=== PATIENT | female | born 1930 | race Caucasian/White ===

== ENCOUNTER → 2017-04-19 | Outpatient (REF) | payer MEDICARE, OTHER ==
[~2017-04-19] MED LIST: /ALEN70TA OR; /GLYB5TA OR; /PANT40TA OR; ACET65TA OR; AMLO10TA OR; ASPI325T OR; BRIMONIDINE TIMOLOL OU; CIPR25SS OR; COSOPT OU; DIOV160T5 PO; HYDR25TA6 OR; LEVA250T OR; LISI40TA PO; LOPR100T OR; LUMIGAN OU; MULTIVIT OR; NOVO70VL SC; PRAV20TA2 OR; TOPR100T OR
== END ==
LOC: M LAB REF 08:07
PROVIDERS: ATTEND Nurse Practitioner Adult Health
DX: R19.7 Diarrhea, unspecified (principal)

== ENCOUNTER 2018-01-25 07:56 | Inpatient (IN) | payer MEDICARE, OTHER ==
[2018-01-25] MEDS: BRIMONIDINE 0.2% EYE DROPS (PATIENT'S OWN MED) OU ×2 (09:00→21:00)
[2018-01-25 09:37] LABS: BASO % 0.4 % (0.0-1.0); EOS # 0.1 10^3/uL (0.0-0.50); EOS % 1.3 % (0.0-3.0); HEMATOCRIT 29.4 % (36.0-47.0); HEMOGLOBIN 9.1 g/dl (12.0-15.5); IMMATURE GRANULOCYTE % 0.3 % (0-3.0); LYMPH % 14.2 % (24.0-44.0); MEAN CORPUSCULAR HEMOGLOBIN 28.3 pg (27.0-33.0); MEAN CORPUSCULAR VOLUME 91.6 fl (80.0-96.0); MONO # 0.3 10^3/uL (0.0-0.8); MONO % 4.5 % (0.0-5.0); NEUTROPHILS # 5.6 10^3/uL (1.8-7.7); NEUTROPHILS % 79.3 % (36.0-66.0); PLATELET COUNT, AUTOMATED 196 10^3/uL (150-450); RED BLOOD COUNT 3.21 10^6/uL (4.00-5.40); RED CELL DISTRIBUTION WIDTH 13.9 % (11.5-14.5); WHITE BLOOD COUNT 7.1 10^3/uL (4.0-10.0)
[2018-01-25 09:41] LABS: INR 0.95; PROTHROMBIN TIME 12.8 SECONDS (12.4-14.5)
[2018-01-25 09:42] LABS: PARTIAL THROMBOPLASTIN TIME 25.9 SECONDS (26.8-37.9)
[2018-01-25 09:52] LABS: ALBUMIN 3.2 GM/DL (3.2-5.2); ALBUMIN/GLOBULIN RATIO 0.73 (1.00-1.93); ALKALINE PHOSPHATASE 267 U/L (45-117); ALT/SGPT 49 U/L (12-78); ANION GAP 6 MEQ/L (8-16); AST/SGOT 32 U/L (7-37); BILIRUBIN,DIRECT 0.2 MG/DL (0.0-0.2); BILIRUBIN,TOTAL 0.5 MG/DL (0.2-1.0); BLOOD UREA NITROGEN 30 MG/DL (7-18); CALCIUM LEVEL 8.8 MG/DL (8.8-10.2); CARBON DIOXIDE LEVEL 26 MEQ/L (21-32); CHLORIDE LEVEL 109 MEQ/L (98-107); CK-MB VALUE MASS 1.7 NG/ML (<3.6); CPK CREATINE PHOSPHOKINASE 31 U/L (26-192); GLOMERULAR FILTRATION RATE > 60.0 (>32); GLUCOSE, FASTING 165 MG/DL (70-100); LIPASE 28 U/L (73-393); MB/CK RELATIVE INDEX 5.48 (< OR =4); POTASSIUM SERUM 3.8 MEQ/L (3.5-5.1); SODIUM LEVEL 141 MEQ/L (136-145); TOTAL PROTEIN 7.6 GM/DL (6.4-8.2); TROPONIN I < 0.02 NG/ML (< 0.10)
[2018-01-25] MEDS: PANTOPRAZOLE SODIUM 40 MG in D5W 50 ML IV ×3 (10:15→22:12)
[2018-01-25] MEDS: PANTOPRAZOLE 40MG INJ (PROTONIX) (C9113) IV (10:25)
[2018-01-25] MEDS: NS 1,000 ML IV (10:25)
[2018-01-25] MEDS ORDERED: DEXTROSE 50% 50 ML SYRINGE IV (11:15)
[2018-01-25] MEDS ORDERED: GLUCOSE 4 GM CHEW TABLET PO (11:15)
[2018-01-25] MEDS ORDERED: GLUCAGON FOR INJ 1 MG VIAL (J1610) SC (11:15)
[2018-01-25] MEDS: D5W/0.45% SODIUM CHLORIDE 1,000 ML IV (11:30)
[2018-01-25 13:00] LABS: FERRITIN 17 NG/ML (8-252); IRON (FE) 28 UG/DL (50-170); PERCENT SATURATION 8.8 % (13.2-45.0); TOTAL IRON BINDING CAPACITY 317 UG/DL (250-450)
[2018-01-25] MEDS: COSOPT OCUMETER PLUS 10ML (DORZOLAMIDE/TIMOLOL) OU ×3 (13:11→22:12)
[2018-01-25] MEDS: LISINOPRIL 10 MG TAB PO (13:11)
[2018-01-25] MEDS: LISINOPRIL 20 MG TAB PO (13:17)
[2018-01-25] MEDS: METOPROLOL SUCC *XL* 25MG TAB (TopROL *XL*) PO (13:17)
[2018-01-25] MEDS: HumaLOG INSULIN (NovoLOG) PER UNIT SC ×3 (13:17→23:53)
[2018-01-25 13:28] LABS: BEDSIDE GLUCOSE 184 MG/DL (83-110)
[2018-01-25 13:45] LABS: IMMEDIATE SPIN CROSSMATCH 1 1
[2018-01-25 17:56] LABS: BEDSIDE GLUCOSE 65 MG/DL (83-110)
[2018-01-25 18:53] LABS: BEDSIDE GLUCOSE 173 MG/DL (83-110)
[2018-01-25 19:47] LABS: HEMATOCRIT 34.4 % (36.0-47.0); HEMOGLOBIN 10.9 g/dl (12.0-15.5)
[2018-01-25 20:14] LABS: CK-MB VALUE MASS 1.5 NG/ML (<3.6); CPK CREATINE PHOSPHOKINASE 33 U/L (26-192); MB/CK RELATIVE INDEX 4.54 (< OR =4); TROPONIN I < 0.02 NG/ML (< 0.10)
[2018-01-25] MEDS: LUMIGAN 0.01% EYE DROPS (PATIENT'S OWN MED) OU (21:00)
[2018-01-25] MEDS: GOLYTELY SOLN 4000 ML BTL PO (22:10)
[2018-01-25] MEDS: BISACODYL 5 MG TAB PO (22:11)
[2018-01-25 23:50] LABS: BEDSIDE GLUCOSE 286 MG/DL (83-110)
[2018-01-26 00:39] LABS: HEMATOCRIT 37.8 % (36.0-47.0)
[2018-01-26 00:57] LABS: CK-MB VALUE MASS 2.2 NG/ML (<3.6); CPK CREATINE PHOSPHOKINASE 41 U/L (26-192); MB/CK RELATIVE INDEX 5.36 (< OR =4); TROPONIN I < 0.02 NG/ML (< 0.10)
[2018-01-26] MEDS: PANTOPRAZOLE SODIUM 40 MG in D5W 50 ML IV ×5 (02:26→20:59)
[2018-01-26] MEDS: D5W/0.45% SODIUM CHLORIDE 1,000 ML IV (05:33)
[2018-01-26] MEDS: HumaLOG INSULIN (NovoLOG) PER UNIT SC ×4 (05:36→20:49)
[2018-01-26] MEDS: LISINOPRIL 40 MG TAB PO (05:46)
[2018-01-26 05:57] LABS: BEDSIDE GLUCOSE 66 MG/DL (83-110)
[2018-01-26 06:43] LABS: BASO % 0.5 % (0.0-1.0); EOS # 0.1 10^3/uL (0.0-0.50); EOS % 1.3 % (0.0-3.0); HEMATOCRIT 34.3 % (36.0-47.0); HEMOGLOBIN 11.1 g/dl (12.0-15.5); IMMATURE GRANULOCYTE % 0.3 % (0-3.0); LYMPH # 0.9 10^3/uL (1.5-4.5); LYMPH % 10.4 % (24.0-44.0); MEAN CORPUSCULAR HEMOGLOBIN 28.5 pg (27.0-33.0); MEAN CORPUSCULAR HGB CONC 32.4 g/dl (32.0-36.5); MEAN CORPUSCULAR VOLUME 88.2 fl (80.0-96.0); MONO # 0.9 10^3/uL (0.0-0.8); MONO % 10.4 % (0.0-5.0); NEUTROPHILS # 6.7 10^3/uL (1.8-7.7); NEUTROPHILS % 77.1 % (36.0-66.0); PLATELET COUNT, AUTOMATED 206 10^3/uL (150-450); RED BLOOD COUNT 3.89 10^6/uL (4.00-5.40); RED CELL DISTRIBUTION WIDTH 13.9 % (11.5-14.5); WHITE BLOOD COUNT 8.7 10^3/uL (4.0-10.0)
[2018-01-26 07:08] LABS: ANION GAP 6 MEQ/L (8-16); BLOOD UREA NITROGEN 16 MG/DL (7-18); CALCIUM LEVEL 8.7 MG/DL (8.8-10.2); CARBON DIOXIDE LEVEL 27 MEQ/L (21-32); CHLORIDE LEVEL 110 MEQ/L (98-107); CHOLESTEROL LEVEL 102 MG/DL (<200); CHOLESTEROL RISK RATIO 2.372 (<5); CPK CREATINE PHOSPHOKINASE 41 U/L (26-192); CREATININE FOR GFR 0.83 MG/DL (0.55-1.30); GLOMERULAR FILTRATION RATE > 60.0 (>32); GLUCOSE, FASTING 98 MG/DL (70-100); HDL CHOLESTEROL 43 MG/DL (>40); NON-HDL-C 59 MG/DL; POTASSIUM SERUM 3.2 MEQ/L (3.5-5.1); SODIUM LEVEL 143 MEQ/L (136-145); TRIGLYCERIDES LEVEL 55 MG/DL (<150); TROPONIN I < 0.02 NG/ML (< 0.10)
[2018-01-26 07:09] LABS: CK-MB VALUE MASS 1.8 NG/ML (<3.6); MB/CK RELATIVE INDEX 4.39 (< OR =4)
[2018-01-26] MEDS: COSOPT OCUMETER PLUS 10ML (DORZOLAMIDE/TIMOLOL) OU ×2 (08:13→21:00)
[2018-01-26] MEDS: METOPROLOL SUCC *XL* 25MG TAB (TopROL *XL*) PO (08:13)
[2018-01-26] MEDS ORDERED: PANTOPRAZOLE 40MG INJ (PROTONIX) (C9113) IV (09:00)
[2018-01-26] MEDS: BRIMONIDINE 0.2% EYE DROPS (PATIENT'S OWN MED) OU ×2 (09:00→21:00)
[2018-01-26 09:38] LABS: ESTIMATED AVERAGE GLUCOSE 174 MG/DL (60-110); HEMOGLOBIN A1c 7.7 %
[2018-01-26 11:35] LABS: BEDSIDE GLUCOSE 244 MG/DL (83-110)
[2018-01-26 12:20] LABS: HEMATOCRIT 31.9 % (36.0-47.0); HEMOGLOBIN 10.5 g/dl (12.0-15.5)
[2018-01-26] MEDS ORDERED: fentaNYL 100 MCG/2 ML INJECTION (J3010) As Ordered (14:43)
[2018-01-26] MEDS ORDERED: LIDOCAINE 2% INJ 100 MG/5 ML SDV (FOR ANES.) As Ordered (15:07)
[2018-01-26] MEDS ORDERED: ePHEDrine SULFATE 25 MG/5 ML(5MG/ML) SYRINGE As Ordered (15:07)
[2018-01-26] MEDS ORDERED: PROPOFOL 200 MG/20 ML VIAL As Ordered (15:07)
[2018-01-26 18:02] LABS: HEMATOCRIT 34.8 % (36.0-47.0); HEMOGLOBIN 11.3 g/dl (12.0-15.5)
[2018-01-26 18:08] LABS: BEDSIDE GLUCOSE 67 MG/DL (83-110)
[2018-01-26 18:46] LABS: BEDSIDE GLUCOSE 143 MG/DL (83-110)
[2018-01-26 20:59] LABS: BEDSIDE GLUCOSE 232 MG/DL (83-110)
[2018-01-26] MEDS: LUMIGAN 0.01% EYE DROPS (PATIENT'S OWN MED) OU (21:00)
[2018-01-27 00:07] LABS: H PYLORI SERUM QUANT IGM <9.0 units (0.0-8.9)
[2018-01-27 02:15] LABS: HEMATOCRIT 30.8 % (36.0-47.0); HEMOGLOBIN 10.2 g/dl (12.0-15.5)
[2018-01-27] MEDS: PANTOPRAZOLE SODIUM 40 MG in D5W 50 ML IV (02:15)
[2018-01-27 05:46] LABS: BASO % 0.2 % (0.0-1.0); EOS % 0.1 % (0.0-3.0); HEMATOCRIT 30.2 % (36.0-47.0); HEMOGLOBIN 9.8 g/dl (12.0-15.5); IMMATURE GRANULOCYTE % 0.5 % (0-3.0); LYMPH % 6.2 % (24.0-44.0); MEAN CORPUSCULAR HEMOGLOBIN 28.9 pg (27.0-33.0); MEAN CORPUSCULAR HGB CONC 32.5 g/dl (32.0-36.5); MEAN CORPUSCULAR VOLUME 89.1 fl (80.0-96.0); MONO # 0.7 10^3/uL (0.0-0.8); MONO % 4.2 % (0.0-5.0); NEUTROPHILS # 13.7 10^3/uL (1.8-7.7); NEUTROPHILS % 88.8 % (36.0-66.0); PLATELET COUNT, AUTOMATED 166 10^3/uL (150-450); RED BLOOD COUNT 3.39 10^6/uL (4.00-5.40); RED CELL DISTRIBUTION WIDTH 14.2 % (11.5-14.5); WHITE BLOOD COUNT 15.4 10^3/uL (4.0-10.0)
[2018-01-27 06:02] LABS: ANION GAP 7 MEQ/L (8-16); BLOOD UREA NITROGEN 10 MG/DL (7-18); CALCIUM LEVEL 7.6 MG/DL (8.8-10.2); CARBON DIOXIDE LEVEL 26 MEQ/L (21-32); CHLORIDE LEVEL 109 MEQ/L (98-107); GLUCOSE, FASTING 306 MG/DL (70-100); POTASSIUM SERUM 3.2 MEQ/L (3.5-5.1); SODIUM LEVEL 142 MEQ/L (136-145)
[2018-01-27 06:32] LABS: BEDSIDE GLUCOSE 356 MG/DL (83-110)
[2018-01-27] MEDS: POTASSIUM CHLORIDE 10 MEQ SR TABLET PO (06:39)
[2018-01-27] MEDS: HumaLOG INSULIN (NovoLOG) PER UNIT SC ×2 (08:25→13:04)
[2018-01-27] MEDS: COSOPT OCUMETER PLUS 10ML (DORZOLAMIDE/TIMOLOL) OU (09:24)
[2018-01-27] MEDS: PANTOPRAZOLE 40MG TAB (PROTONIX) PO (09:25)
[2018-01-27] MEDS: BRIMONIDINE 0.2% EYE DROPS (PATIENT'S OWN MED) OU (09:25)
[2018-01-27] MEDS: LISINOPRIL 40 MG TAB PO (09:28)
[2018-01-27] MEDS: METOPROLOL SUCC *XL* 25MG TAB (TopROL *XL*) PO (09:28)
[2018-01-27 11:11] LABS: HEMATOCRIT 29.7 % (36.0-47.0); HEMOGLOBIN 9.8 g/dl (12.0-15.5)
[2018-01-27 11:54] LABS: BEDSIDE GLUCOSE 186 MG/DL (83-110)
== END 2018-01-27 17:14 | disposition home or self-care (01) | DRG 378 ==
LOC: M ED 07:56 → M ED INP 11:11 → M MSPAV 12:34
PROVIDERS: General Practice
PROC: 0DB58ZX Excision of Esophagus, Via Natural or Artificial Opening Endoscopic, Diagnostic (ICD-10-PCS; principal; 2018-01-26 14:00)
PROC: 0DJD8ZZ Inspection of Lower Intestinal Tract, Via Natural or Artificial Opening Endoscopic (ICD-10-PCS; 2018-01-26 14:00)
PROC: 0D758ZZ Dilation of Esophagus, Via Natural or Artificial Opening Endoscopic (ICD-10-PCS; 2018-01-26 14:00)
PROC: 30233N1 Transfusion of Nonautologous Red Blood Cells into Peripheral Vein, Percutaneous Approach (ICD-10-PCS; 2018-01-26 14:40)
DX: K62.5 Hemorrhage of anus and rectum (principal); D62 Acute posthemorrhagic anemia; K22.2 Esophageal obstruction; K57.30 Diverticulosis of large intestine without perforation or abscess without bleeding; K64.8 Other hemorrhoids; K64.4 Residual hemorrhoidal skin tags; Z66 Do not resuscitate; E78.5 Hyperlipidemia, unspecified; H40.9 Unspecified glaucoma; I10 Essential (primary) hypertension; Z88.8 Allergy status to other drugs, medicaments and biological substances; E11.9 Type 2 diabetes mellitus without complications; Z79.899 Other long term (current) drug therapy; Z79.4 Long term (current) use of insulin; R25.1 Tremor, unspecified

== ENCOUNTER → 2018-03-03 | Outpatient (CLI) | payer MEDICARE, OTHER ==
[~2018-03-03] MED LIST changes: -/ALEN70TA OR; -/GLYB5TA OR; -/PANT40TA OR; -ACET65TA OR; -AMLO10TA OR; -ASPI325T OR; -BRIMONIDINE TIMOLOL OU; -CIPR25SS OR; -COSOPT OU; -DIOV160T5 PO; +E-Z-GAS II EFFERVESCENT PACKET (SODIUM BICARB./CITRIC ACID/SIMETHICONE) As Ordered; +E-Z-HD 98% w/w 340GM SUSP BTL As Ordered; +E-Z-PAQUE 96% w/w SUSP 176GM BTL As Ordered; -HYDR25TA6 OR; -LEVA250T OR; -LISI40TA PO; -LOPR100T OR; -LUMIGAN OU; -MULTIVIT OR; -NOVO70VL SC; -PRAV20TA2 OR; -TOPR100T OR
== END ==
LOC: M RAD 07:59
DX: K22.2 Esophageal obstruction (principal)
CPT/HCPCS: 74241

== ENCOUNTER 2018-03-04 10:54 | Emergency (ER) | payer MEDICARE, OTHER ==
[2018-03-04] MEDS: NS 1,000 ML IV (12:15)
[2018-03-04 12:47] LABS: BASO % 0.2 % (0.0-1.0); EOS % 0.1 % (0.0-3.0); IMMATURE GRANULOCYTE % 0.6 % (0-3.0); LYMPH # 0.6 10^3/uL (1.5-4.5); LYMPH % 3.2 % (24.0-44.0); MEAN CORPUSCULAR HEMOGLOBIN 28.3 pg (27.0-33.0); MEAN CORPUSCULAR HGB CONC 31.3 g/dl (32.0-36.5); MEAN CORPUSCULAR VOLUME 90.7 fl (80.0-96.0); MONO # 1.1 10^3/uL (0.0-0.8); MONO % 6.1 % (0.0-5.0); NEUTROPHILS # 16.2 10^3/uL (1.8-7.7); NEUTROPHILS % 89.8 % (36.0-66.0); PLATELET COUNT, AUTOMATED 248 10^3/uL (150-450); RED BLOOD COUNT 3.53 10^6/uL (4.00-5.40); RED CELL DISTRIBUTION WIDTH 14.9 % (11.5-14.5)
[2018-03-04 13:03] LABS: ALBUMIN 2.9 GM/DL (3.2-5.2); ALBUMIN/GLOBULIN RATIO 0.73 (1.00-1.93); ALKALINE PHOSPHATASE 207 U/L (45-117); ALT/SGPT 41 U/L (12-78); ANION GAP 8 MEQ/L (8-16); AST/SGOT 44 U/L (7-37); BILIRUBIN,DIRECT 0.3 MG/DL (0.0-0.2); BILIRUBIN,TOTAL 0.5 MG/DL (0.2-1.0); BLOOD UREA NITROGEN 21 MG/DL (7-18); CALCIUM LEVEL 8.3 MG/DL (8.8-10.2); CARBON DIOXIDE LEVEL 24 MEQ/L (21-32); CHLORIDE LEVEL 113 MEQ/L (98-107); CPK CREATINE PHOSPHOKINASE 77 U/L (26-192); CREATININE FOR GFR 0.92 MG/DL (0.55-1.30); GLOMERULAR FILTRATION RATE > 60.0 (>32); POTASSIUM SERUM 3.2 MEQ/L (3.5-5.1); SALICYLATE LEVEL < 1.7 MG/DL (5.0-30.0); SODIUM LEVEL 145 MEQ/L (136-145); TOTAL PROTEIN 6.9 GM/DL (6.4-8.2); TROPONIN I 0.02 NG/ML (< 0.10)
[2018-03-04 13:09] LABS: CK-MB VALUE MASS 3.7 NG/ML (<3.6)
[2018-03-04 13:13] LABS: ACETAMINOPHEN LEVEL < 2.0 UG/ML (10.0-30.0)
[2018-03-04 13:14] LABS: GLUCOSE, FASTING 28 MG/DL (70-100)
[2018-03-04] MEDS: DEXTROSE 50% 50 ML SYRINGE IV (13:18)
[2018-03-04 13:40] LABS: BEDSIDE GLUCOSE 200 MG/DL (83-110)
[2018-03-04 13:49] LABS: KETONE, URINE AUTO RFX NEGATIVE (NEGATIVE); LEUKOCYTE ESTERASE UR AUTO RFX NEGATIVE (NEGATIVE); MUCUS, URINE RFX SMALL (NEGATIVE); NITRITE, URINE AUTO RFX NEGATIVE (NEGATIVE); RBC, URINE AUTO RFX 0 /HPF (0-3); SPECIFIC GRAVITY UR AUTO RFX 1.013 (1.002-1.035); SQUAM EPITHELIAL CELL UR AURFX 0 /HPF (0-6); WBC, URINE AUTO RFX 0 /HPF (0-3)
[2018-03-04 14:43] LABS: BEDSIDE GLUCOSE 262 MG/DL (83-110)
[2018-03-04 15:55] LABS: BEDSIDE GLUCOSE 270 MG/DL (83-110)
[2018-03-07 15:49] LABS: BEDSIDE GLUCOSE 67 MG/DL (83-110)
== END 2018-03-04 16:29 | disposition home or self-care (01) ==
LOC: M ED 10:54
DX: S93.402A Sprain of unspecified ligament of left ankle, initial encounter (principal); S40.022A Contusion of left upper arm, initial encounter; W01.0XXA Fall on same level from slipping, tripping and stumbling without subsequent striking against object, initial encounter; Y92.009 Unspecified place in unspecified non-institutional (private) residence as the place of occurrence of the external cause; E11.649 Type 2 diabetes mellitus with hypoglycemia without coma; I10 Essential (primary) hypertension; K21.9 Gastro-esophageal reflux disease without esophagitis; Z79.4 Long term (current) use of insulin; Z79.899 Other long term (current) drug therapy; Z88.8 Allergy status to other drugs, medicaments and biological substances
CPT/HCPCS: 71045

== ENCOUNTER → 2018-03-08 | Outpatient (REF) | payer MEDICARE, OTHER ==
[2018-03-08 23:43] LABS: IRON (FE) 15 UG/DL (50-170)
[2018-03-08 23:44] LABS: PERCENT SATURATION 6.7 % (13.2-45.0); TOTAL IRON BINDING CAPACITY 224 UG/DL (250-450)
== END ==
LOC: M LAB REF 12:36
DX: D50.9 Iron deficiency anemia, unspecified (principal)
CPT/HCPCS: 83550

== ENCOUNTER 2018-04-03 06:36 | Day surgery (SDC) | payer MEDICARE, OTHER ==
[2018-04-03] MEDS: NS 1,000 ML IV (07:11)
[2018-04-03] MEDS ORDERED: LIDOCAINE 2% INJ 100 MG/5 ML SDV (FOR ANES.) As Ordered (07:24)
[2018-04-03] MEDS ORDERED: PROPOFOL 200 MG/20 ML VIAL As Ordered ×3 (07:24→08:38)
== END 2018-04-03 09:11 | disposition home or self-care (01) ==
LOC: M OPP 06:36
DX: R13.10 Dysphagia, unspecified (principal); K22.2 Esophageal obstruction; K31.89 Other diseases of stomach and duodenum; T18.2XXA Foreign body in stomach, initial encounter; T81.89XS Other complications of procedures, not elsewhere classified, sequela; K44.9 Diaphragmatic hernia without obstruction or gangrene; I10 Essential (primary) hypertension; E10.9 Type 1 diabetes mellitus without complications; R19.7 Diarrhea, unspecified; K21.9 Gastro-esophageal reflux disease without esophagitis; M19.90 Unspecified osteoarthritis, unspecified site; R25.1 Tremor, unspecified; H40.9 Unspecified glaucoma; Z88.8 Allergy status to other drugs, medicaments and biological substances; Z79.4 Long term (current) use of insulin; Z79.899 Other long term (current) drug therapy
CPT/HCPCS: 43249

== ENCOUNTER → 2018-04-06 | Outpatient (CLI) | payer MEDICARE, OTHER ==
[~2018-04-06] MED LIST changes: -E-Z-GAS II EFFERVESCENT PACKET (SODIUM BICARB./CITRIC ACID/SIMETHICONE) As Ordered; -E-Z-HD 98% w/w 340GM SUSP BTL As Ordered; -E-Z-PAQUE 96% w/w SUSP 176GM BTL As Ordered; +GASTROGRAFIN SOLUTION 30ML (Q9963) As Ordered; +ISOVUE-370 76% 100ML VIAL (Q9967) As Ordered
== END ==
LOC: M RAD 13:43
DX: C17.0 Malignant neoplasm of duodenum (principal); E04.1 Nontoxic single thyroid nodule; N13.30 Unspecified hydronephrosis; K43.9 Ventral hernia without obstruction or gangrene
CPT/HCPCS: Q9963

== ENCOUNTER 2018-05-31 16:40 | Observation (INO) | payer MEDICARE, OTHER ==
[2018-05-31 18:34] LABS: HEMATOCRIT 36.1 % (36.0-47.0); HEMOGLOBIN 11.6 g/dl (12.0-15.5); WHITE BLOOD COUNT 5.9 10^3/uL (4.0-10.0)
[2018-05-31 18:35] LABS: BASO % 0.3 % (0.0-1.0); EOS % 0.2 % (0.0-3.0); IMMATURE GRANULOCYTE % 0.3 % (0-3.0); LYMPH # 0.8 10^3/uL (1.5-4.5); LYMPH % 12.9 % (24.0-44.0); MEAN CORPUSCULAR HEMOGLOBIN 27.6 pg (27.0-33.0); MEAN CORPUSCULAR HGB CONC 32.1 g/dl (32.0-36.5); MONO # 0.3 10^3/uL (0.0-0.8); MONO % 5.1 % (0.0-5.0); NEUTROPHILS # 4.8 10^3/uL (1.8-7.7); NEUTROPHILS % 81.2 % (36.0-66.0); PLATELET COUNT, AUTOMATED 224 10^3/uL (150-450); RED CELL DISTRIBUTION WIDTH 16.2 % (11.5-14.5)
[2018-05-31] MEDS: ONDANSETRON 4MG/2ML VIAL (J2405) IV (18:48)
[2018-05-31 18:50] LABS: ALBUMIN 3.1 GM/DL (3.2-5.2); ALBUMIN/GLOBULIN RATIO 0.66 (1.00-1.93); ALKALINE PHOSPHATASE 185 U/L (45-117); ALT/SGPT 48 U/L (12-78); ANION GAP 12 MEQ/L (8-16); AST/SGOT 16 U/L (7-37); BILIRUBIN,DIRECT 0.3 MG/DL (0.0-0.2); BILIRUBIN,TOTAL 0.5 MG/DL (0.2-1.0); BLOOD UREA NITROGEN 15 MG/DL (7-18); CALCIUM LEVEL 8.5 MG/DL (8.8-10.2); CARBON DIOXIDE LEVEL 28 MEQ/L (21-32); CHLORIDE LEVEL 101 MEQ/L (98-107); CK-MB VALUE MASS 1.1 NG/ML (<3.6); CPK CREATINE PHOSPHOKINASE 24 U/L (26-192); CREATININE FOR GFR 0.92 MG/DL (0.55-1.30); GLOMERULAR FILTRATION RATE > 60.0 (>32); GLUCOSE, FASTING 273 MG/DL (70-100); LIPASE 18 U/L (73-393); MB/CK RELATIVE INDEX 4.58 (< OR =4); POTASSIUM SERUM 2.9 MEQ/L (3.5-5.1); SODIUM LEVEL 141 MEQ/L (136-145); TOTAL PROTEIN 7.8 GM/DL (6.4-8.2); TROPONIN I 0.04 NG/ML (< 0.10)
[2018-05-31] MEDS: KCL 10MEQ/100ML SWI (KRUN) 10 MEQ in APPROPRIATE DILUENT 1 EA IV (19:26)
[2018-05-31] MEDS: GASTROGRAFIN SOLUTION 30ML PO ×2 (20:16→20:30)
[2018-05-31] MEDS ORDERED: ONDANSETRON 4 MG TAB (S0181) PO (20:45)
[2018-05-31] MEDS ORDERED: BISACODYL 10 MG SUPP PR (20:45)
[2018-05-31] MEDS ORDERED: GLUCOSE 4 GM CHEW TABLET PO (20:45)
[2018-05-31] MEDS ORDERED: GLUCAGON FOR INJ 1 MG VIAL (J1610) SC (20:45)
[2018-05-31] MEDS ORDERED: ACETAMINOPHEN TAB 650MG DOSE (2X325MG) PO (20:45)
[2018-05-31] MEDS ORDERED: DEXTROSE 50% 50 ML SYRINGE IV (20:45)
[2018-05-31] MEDS ORDERED: ISOVUE-370 76% 100ML VIAL (Q9967) As Ordered (20:50)
[2018-05-31] MEDS: NS 1,000 ML IV (21:00)
[2018-05-31] MEDS: PANTOPRAZOLE 40MG TAB (PROTONIX) PO (21:00)
[2018-05-31] MEDS: BRIMONIDINE 0.15% OPHTH SOLN 5 ML OU (21:00)
[2018-05-31] MEDS: LATANOPROST 0.005% OPHTH SOLN 2.5 ML OU (21:00)
[2018-05-31] MEDS: HumaLOG INSULIN (NovoLOG) PER UNIT SC (21:00)
[2018-05-31] MEDS: MAG SULF 1GM/100ML (MAG RUN) 1 GM in APPROPRIATE DILUENT 1 EA IV (23:00)
[2018-05-31 23:13] LABS: MAGNESIUM LEVEL 1.1 MG/DL (1.8-2.4)
[2018-06-01] MEDS: MAG SULF 1GM/100ML (MAG RUN) 1 GM in APPROPRIATE DILUENT 1 EA IV
[2018-06-01] MEDS: ONDANSETRON 4MG/2ML VIAL (J2405) IV ×3 (00:30→09:31)
[2018-06-01] MEDS: KCL 10MEQ/100ML SWI (KRUN) 10 MEQ in APPROPRIATE DILUENT 1 EA IV ×3 (01:00→03:00)
[2018-06-01 07:19] LABS: BASO % 0.2 % (0.0-1.0); HEMATOCRIT 35.9 % (36.0-47.0); HEMOGLOBIN 11.4 g/dl (12.0-15.5); IMMATURE GRANULOCYTE % 0.6 % (0-3.0); LYMPH # 0.8 10^3/uL (1.5-4.5); LYMPH % 8.8 % (24.0-44.0); MEAN CORPUSCULAR HEMOGLOBIN 27.4 pg (27.0-33.0); MEAN CORPUSCULAR HGB CONC 31.8 g/dl (32.0-36.5); MEAN CORPUSCULAR VOLUME 86.3 fl (80.0-96.0); MONO # 0.4 10^3/uL (0.0-0.8); MONO % 4.2 % (0.0-5.0); NEUTROPHILS # 7.5 10^3/uL (1.8-7.7); NEUTROPHILS % 86.2 % (36.0-66.0); PLATELET COUNT, AUTOMATED 210 10^3/uL (150-450); RED BLOOD COUNT 4.16 10^6/uL (4.00-5.40); RED CELL DISTRIBUTION WIDTH 16.5 % (11.5-14.5); WHITE BLOOD COUNT 8.7 10^3/uL (4.0-10.0)
[2018-06-01] MEDS: HumaLOG INSULIN (NovoLOG) PER UNIT SC ×3 (07:30→18:18)
[2018-06-01 07:34] LABS: ANION GAP 12 MEQ/L (8-16); BLOOD UREA NITROGEN 13 MG/DL (7-18); CALCIUM LEVEL 8.1 MG/DL (8.8-10.2); CARBON DIOXIDE LEVEL 28 MEQ/L (21-32); CHLORIDE LEVEL 99 MEQ/L (98-107); CREATININE FOR GFR 0.92 MG/DL (0.55-1.30); GLOMERULAR FILTRATION RATE > 60.0 (>32); GLUCOSE, FASTING 330 MG/DL (70-100); MAGNESIUM LEVEL 2.2 MG/DL (1.8-2.4); POTASSIUM SERUM 3.3 MEQ/L (3.5-5.1); SODIUM LEVEL 139 MEQ/L (136-145)
[2018-06-01 07:36] LABS: ESTIMATED AVERAGE GLUCOSE 183 MG/DL (60-110)
[2018-06-01] MEDS: LISINOPRIL 40 MG TAB PO (08:02)
[2018-06-01] MEDS: PANTOPRAZOLE 40MG TAB (PROTONIX) PO (08:02)
[2018-06-01] MEDS: METOPROLOL SUCC *XL* 25MG TAB (TopROL *XL*) PO (08:03)
[2018-06-01] MEDS: KCL 40MEQ in NS 1000ML 1,000 ML IV ×2 (09:35→18:52)
[2018-06-01] MEDS: BRIMONIDINE 0.15% OPHTH SOLN 5 ML OU ×2 (09:39→20:39)
[2018-06-01] MEDS: ENOXAPARIN 40 MG/0.4 ML SYRINGE (J1650) SC (09:39)
[2018-06-01] MEDS: cloNIDine HCL 0.2 MG/24 HR PATCH TOP (09:54)
[2018-06-01 11:50] LABS: BEDSIDE GLUCOSE 346 MG/DL (83-110)
[2018-06-01] MEDS ORDERED: GLUCOSE 4 GM CHEW TABLET PO ×2 (16:15→16:30)
[2018-06-01] MEDS ORDERED: GLUCAGON FOR INJ 1 MG VIAL (J1610) SC ×2 (16:15→16:30)
[2018-06-01] MEDS ORDERED: HumuLIN R (REGULAR) INSULIN (NovoLIN R) **100U/ML** PER UNIT SC (16:15)
[2018-06-01] MEDS ORDERED: DEXTROSE 50% 50 ML SYRINGE IV ×2 (16:15→16:30)
[2018-06-01 16:39] LABS: BEDSIDE GLUCOSE 156 MG/DL (83-110)
[2018-06-01 20:27] LABS: BEDSIDE GLUCOSE 79 MG/DL (83-110)
[2018-06-01] MEDS: PANTOPRAZOLE 40MG INJ (PROTONIX) (C9113) IV (20:38)
[2018-06-01] MEDS: LATANOPROST 0.005% OPHTH SOLN 2.5 ML OU (20:38)
[2018-06-01] MEDS: DEXTROSE 50% 50 ML SYRINGE IV (21:36)
[2018-06-02 02:08] LABS: BEDSIDE GLUCOSE 67 MG/DL (83-110)
== END 2018-06-01 21:53 | disposition short-term general hospital (02) ==
LOC: M MS5PR 06-01 13:32 → M ED 16:40 → M ED INP 22:52
DX: K56.690 Other partial intestinal obstruction (principal); D37.2 Neoplasm of uncertain behavior of small intestine; I16.0 Hypertensive urgency; E27.9 Disorder of adrenal gland, unspecified; E11.9 Type 2 diabetes mellitus without complications; Z79.4 Long term (current) use of insulin; E78.4 Other hyperlipidemia; H40.9 Unspecified glaucoma; Z79.899 Other long term (current) drug therapy; Z88.8 Allergy status to other drugs, medicaments and biological substances
CPT/HCPCS: C9113

== ENCOUNTER → 2018-06-14 | Outpatient (REF) | payer MEDICARE, OTHER ==
[2018-06-14 18:55] LABS: ANION GAP 10 MEQ/L (8-16); BLOOD UREA NITROGEN 5 MG/DL (7-18); CALCIUM LEVEL 7.7 MG/DL (8.8-10.2); CARBON DIOXIDE LEVEL 26 MEQ/L (21-32); CHLORIDE LEVEL 101 MEQ/L (98-107); CREATININE FOR GFR 0.89 MG/DL (0.55-1.30); GLOMERULAR FILTRATION RATE > 60.0 (>32); GLUCOSE, FASTING 389 MG/DL (70-100); POTASSIUM SERUM 3.9 MEQ/L (3.5-5.1); SODIUM LEVEL 137 MEQ/L (136-145)
== END ==
LOC: M LAB REF 16:36
DX: N18.3 Chronic kidney disease, stage 3 (moderate) (principal)
CPT/HCPCS: 80048